=== PATIENT | female | born 1995 | race Caucasian/White ===

== ENCOUNTER 2021-11-09 19:13 | Inpatient (IN) | payer OTHER, MEDICAID, SELFPAY ==
[2021-11-09 19:14] VITALS: BP 156/107; PULSE 108; RESP 15; TEMP 36.5; O2SAT 100; BMI 37.0
--- NOTE | 2021-11-09 19:38 | EKG12_ITS ---
Test Reason : DYSRHYTHMIA Blood Pressure : / mmHG Vent. Rate : 096 BPM Atrial Rate : 096 BPM P-R Int : 156 ms QRS Dur : 092 ms QT Int : 374 ms P-R-T Axes : 062 039 045 degrees QTc Int : 472 ms Normal sinus rhythm Normal ECG Confirmed by TERESA MURDOCK, FIDEL ([id number]), film editor KANDI VELA ([id number]) on 11/11/2021 6:15:39 AM Referred By: KAYLYNN Confirmed By:FIDEL MOORE MD
--- NOTE | 2021-11-09 19:44 | EDS_ITS ---
HPI History of Present Illness Chief Complaint: Substance Abuse Narrative Narrative: Patient presents with polysubstance abuse, wanting detox. She states she has been an addict for 10 years. She mixed cocaine and methamphetamines today. 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 She states that she also has problems with alcohol, and drinks anywhere from 8-24 beers a day, last drink was earlier today. She called her cousin who brought her here to the emergency department because she wanted detox as she had spoken with a rehabilitation counselor. She denies any suicidal ideation. She states she does not use heroin or other substances. She has used benzodiazepines in the past but that is not my thing. [facility] Medical History (Updated 11/09/21 @ 21:27 by William Genao MD) Alcohol abuse Hypothyroidism Schizophrenia Substance abuse Home Medications levothyroxine 25 mcg tablet 25 mcg PO DAILY 11/09/21 [History Last Taken Unknown] Allergy/AdvReac Type Severity Reaction Status Date / Time No Known Allergies Allergy Verified 11/09/21 19:18 Social History Smoking Status: Current every day smoker tobacco type: cigarettes ROS ROS ED ROS Narrative Constitutional: No fever, no chills. HEENT: No sore throat. No neck pain. No loss of vision. No rhinorrhea. Cardiovascular: No chest pain. No palpitations. No pedal edema. Respiratory: No cough, no shortness of breath. Abdominal: No abdominal pain. No nausea. No vomiting. Genitourinary: No dysuria. No hematuria. Musculoskeletal: No myalgias. No arthralgias. Neurologic: No headaches. No dizziness. No lightheadedness. Skin: No rash. No change in color. Psychiatric: No depression. No anxiety. I am scared. EXAM Physical Exam Narrative Exam Narrative: Afebrile. Vital signs noted. HEENT: Normocephalic. Atraumatic. PERRL, EOMI. Neck soft and supple. No point tenderness or step off. Cardiovascular: Positive tachycardia, no murmurs, rubs, or gallops appreciated. Respiratory: No tachypnea. Lungs clear to auscultation bilaterally. Gastrointestinal: Abdomen soft, nontender, with normoactive bowel sounds. No rebound or guarding. Neurological: Awake. Alert. Nonfocal, nonlateralizing. Skin: No rash. Normal color. No pallor. Musculoskeletal: No pedal edema. Full range of motion extremities. Psychiatric: Denies suicidal ideation. No active hallucinations. Tearful on examination. Const Vital Signs: 11/09/21 19:14 11/09/21 21:14 Temperature 97.7 F L Temperature Source Temporal Pulse Rate 108 H Respiratory Rate 15 17 Blood Pressure 156/107 H Blood Pressure Mean 123 Pulse Ox 100 Oxygen Delivery Method Room Air Room Air MDM MDM MDM Narrative Medical decision making narrative: Medical screening labs were obtained. Serum is negative. Urine drug screen is positive for amphetamines, cocaine, and cannabinoids. Ethyl alcohol level is negative at less than 3.0. CBC is grossly normal. CMP shows hypokalemia of 3.0 which was replaced orally with 40 mill equivalents. At this point in time, I feel she is medically cleared for detox. Patient will be discussed with Dr. Kohler, the hospitalist for admission for detoxification. Patient is in stable condition. Lab Data Attestation: I reviewed the patient's lab results. Labs: Laboratory Results - last 24 hr 11/09/21 11/09/21 11/09/21 19:35 20:45 20:45 WBC 8.3 RBC 4.39 Hgb 14.9 Hct 41.9 MCV 95.4 MCH 33.9 H MCHC 35.6 RDW Std Deviation 44.9 H RDW Coeff of Sena 12.7 Plt Count 328 MPV 10.6 Immature Gran % (Auto) 0.100 Neut % (Auto) 56.7 Lymph % (Auto) 32.4 [place] % (Auto) 9.7 Eos % (Auto) 0.7 Baso % (Auto) 0.4 Absolute Neuts (auto) 4.7 Absolute Lymphs (auto) 2.68 Nucleated RBC % 0 Sodium Potassium Chloride Carbon Dioxide Anion Gap BUN Creatinine Estim Creat Clear Calc Est GFR (MDRD) Af Amer Est GFR (MDRD) Non-Af BUN/Creatinine Ratio Glucose Calcium Total Bilirubin AST ALT Alkaline Phosphatase Total Protein Albumin Globulin Albumin/Globulin Ratio Serum , Qual Urine Opiates Screen NEGATIVE Urine Methadone Screen NEGATIVE Ur Barbiturates Screen NEGATIVE Ur Phencyclidine Scrn NEGATIVE Ur Amphetamines Screen POSITIVE H MDMA (Ecstasy) Screen NEGATIVE U Benzodiazepines Scrn NEGATIVE Urine Cocaine Screen POSITIVE H U Cannabinoids Screen POSITIVE H Ur Drug Screen Comment Ethyl Alcohol < 3.0 11/09/21 11/09/21 20:45 20:45 WBC RBC Hgb Hct MCV MCH MCHC RDW Std Deviation RDW Coeff of Sen[place] Plt Count MPV Immature Gran % (Auto) Neut % (Auto) Lymph % (Auto) [place] % (Auto) Eos % (Auto) Baso % (Auto) Absolute Neuts (auto) Absolute Lymphs (auto) Nucleated RBC % Sodium 139 Potassium 3.0 L Chloride 105 Carbon Dioxide 25.0 Anion Gap 9 BUN 6 L Creatinine 0.69 Estim Creat Clear Calc 88.75 Est GFR (MDRD) Af Amer 131 Est GFR (MDRD) Non-Af 109 BUN/Creatinine Ratio 8.7 L Glucose 94 Calcium 9.2 Total Bilirubin 0.70 AST 13 L ALT 25 Alkaline Phosphatase 66 Total Protein 8.0 Albumin 4.4 Globulin 3.6 Albumin/Globulin Ratio 1.2 Serum , Qual NEGATIVE Urine Opiates Screen Urine Methadone Screen Ur Barbiturates Screen Ur Phencyclidine Scrn Ur Amphetamines Screen MDMA (Ecstasy) Screen U Benzodiazepines Scrn Urine Cocaine Screen U Cannabinoids Screen Ur Drug Screen Comment Ethyl Alcohol Discharge Plan Dx/Rx/DC Orders Clinical Impression: Polysubstance abuse, Desire for detoxification, Hypokalemia Disposition Disposition: Acute Care Hospital [facility]
[2021-11-09 20:25] LABS: Amphetamine Urine VISTA POSITIVE (<1000 ng/mL); Barbiturate Urine VISTA NEGATIVE (< 200 ng/mL); Benzodiazepine Urine VISTA NEGATIVE (< 200 ng/mL); Cocaine Urine VISTA POSITIVE (< 300 ng/mL); Ecstacy Urine VISTA NEGATIVE (< 500 ng/mL); Methadone Urine VISTA NEGATIVE (< 300 ng/mL); PCP Urine VISTA NEGATIVE (< 25 ng/mL); THC Urine VISTA POSITIVE (< 50 ng/mL); Vista UDS pH Range 8
[2021-11-09 21:00] LABS: Absolute Lymphocyte Count 2.68 X10^3/uL (0.83-4.51); Absolute Neutrophil Count 4.7 X10^3/uL (2.0-7.7); Basophil# 0.03 X10^3/uL; Basophil% 0.4 % (0-1); Eosinophil# 0.06 X10^3/uL; Eosinophils% 0.7 % (0-5); Hematocrit 41.9 % (37-47); Hemoglobin 14.9 g/dL (12.0-15.0); Lymphocyte # 2.68 X10^3/ul (0.83-4.51); Lymphocyte % 32.4 % (19-41); Mean Corp Hgb Conc 35.6 g/dL (32-36); Mean Corpuscular Hgb 33.9 pg (27.0-32.0); Mean Corpuscular Volume 95.4 fL (81-99); Mean Platelet Vol. 10.6 fl (6.2-12.0); Monocyte% 9.7 % (0-10); NRBC Flagged by Analyzer 0 % (0-5); Neutrophil # 4.68 X10^3/uL (2.7-7.7); Neutrophil % 56.7 % (47-70); Platelet Count 328 K/mm3 (150-450); RBC Distribution Width CV 12.7 % (11.6-14.6); RBC Distribution Width SD 44.9 fl (35.1-43.9); Red Blood Count 4.39 M/mm3 (4.2-5.4); White Blood Count 8.3 K/mm3 (4.4-11.0)
[2021-11-09 21:14] VITALS: RESP 17
[2021-11-09 21:17] LABS: Alcohol, Blood (Medical)-Serum < 3.0 mg/dL
[2021-11-09 21:20] LABS: ALB/GLOB Ratio 1.2 RATIO (0.9-2.4); AST(SGOT) 13 U/L (15-37); Alanine Aminotransfer ALT/SGPT 25 U/L (13-56); Albumin, Serum 4.4 g/dL (3.2-5.0); Alkaline Phosphatase 66 U/L (45-117); Anion Gap 9 (5-15); BUN 6 mg/dL (7-18); BUN/Creat Ratio 8.7 RATIO (10-20); Calcium,Total 9.2 mg/dL (8.5-10.1); Chloride 105 mmol/L (98-107); Creatinine, Serum 0.69 mg/dL (0.55-1.02); EST Glomerular Filtration Rate 109 mL/min (>60); Est Glom Filt Rate - Afr Amer 131 mL/min (>60); Estimated Creatinine Clearance 88.75 ml/min; Globulin 3.6 g/dL (2.2-4.2); Glucose 94 mg/dL (74-106); Sodium Level 139 mmol/L (136-145)
[2021-11-09 21:21] LABS: Internal QC Validated? YES +Cl - CLEAR BKGD; Pregnancy, Serum, hCG Quali. NEGATIVE Negative
[2021-11-09] MEDS: Potassium Chloride Oral Tablet 20 MEQ 40 MEQ PO ×2 (21:30→23:08)
[2021-11-09 21:46] VITALS: BP 150/100; PULSE 119; RESP 17; TEMP 36.4; O2SAT 98
--- NOTE | 2021-11-09 22:01 | HP.PCM.HOS_ITS ---
HPI - General General Date of Admission: 11/09/21 Date of Service: 11/09/21 Chief Complaint: Cocaine, Methamphetamine, EtOH abuse, requesting withdrawal treatment HPI Narrative The patient is a 26 y/o F w/ PMHx: Tobacco use, Anxiety and Depression/Bipolar Disorder/ADHD/Schizophrenia, Polysubstance abuse (Methamphetamine/Cocaine snorted frequently, last use 8-9 am on day of presentation, EtOH (18-24 beers daily, last usage 8-9 am) who presents to the [facility] ED on 11/09/21 with onset of acute withdrawal complaints including mild tremors, agitation, tactile disturbances in addition to irritability, poor concentration increased paranoia above her baseline and cocaine cravings secondary to concurrent stimulant abuse as well as alcohol abuse requesting substance detoxification. Work-up in the ED included T97.6, heart rate 119, BP 150/100, respiratory rate 17, 98% on room air, CBC with WC 8.3, hemoglobin 14.9, platelet 328 without marked shift, CMP with potassium 3.0 otherwise CMP unremarkable, serum negative, UDS with positive amphetamine, cocaine and cannabis, ethyl alcohol less than 3. In the ED from discussion with staff patient was initially extremely confrontational and irritable but did calm down and does state that she is extremely interested in getting help. She notes that her daughter stays with her during the meade therefore should not with her currently but she does not want a risk losing any partial custody. [facility] Medical History ADHD Alcohol abuse Anxiety and depression Bipolar disorder Hypothyroidism Schizophrenia Substance abuse Tobacco use Home Medications levothyroxine 25 mcg tablet 25 mcg PO DAILY 11/09/21 [History Last Taken Unknown] Allergy/AdvReac Type Severity Reaction Status Date / Time No Known Allergies Allergy Verified 11/09/21 19:18 Family History (Updated 11/09/21 @ 22:[address] Ivett Kohler MD) Mother Hypertension Father Heart disease CAD (coronary artery disease) Myocardial infarction Hypertension Surgical History (Updated 11/09/21 @ 22:[address] Ivett Kohler MD) History of nephrostomy Social History (Updated 11/09/21 @ 22:[address] Ivett Kohler MD) household members: other details: Staying with her mother. She has a daughter w/ divided custody with father. Smoking Status: Current every day smoker tobacco type: cigarettes Smoking packs per day: 1.5 Smoking cigarettes per day: 30.0 alcohol intake: current alcohol intake frequency: 3 or more drinks per day details: 18-24 beers daily. substance use type: marijuana, crack/cocaine and methamphetamine ROS ROS Narrative Admission Review of Systems: CONSTITUTIONAL: No weight loss, fever, chills, + weakness or fatigue. HEENT: + Rhinorrhea, congestion. Eyes: No visual loss, blurred vision, double vision or yellow sclerae. Ears, Nose, Throat: No hearing loss, sneezing or sore throat. SKIN: No rash or itching, lesions, wounds. CARDIOVASCULAR: No chest pain, chest pressure or chest discomfort, palpitations, edema, orthopnea, syncopal events. RESPIRATORY: No shortness of breath, cough or sputum, wheezing, hemoptysis. GASTROINTESTINAL: + anorexia, nausea without vomiting, no diarrhea, abdominal pain, melena, BRBPR. GENITOURINARY: No dysuria, frequency, urgency or retention. NEUROLOGICAL: + Agitation, tactile disturbances, mild tremors, No headache, dizziness, syncope, paralysis, ataxia, numbness or tingling in the extremities, focal weakness, change in bowel or bladder control, seizure. MUSCULOSKELETAL: + muscle, back pain, joint pain or stiffness. HEMATOLOGIC: No anemia, bleeding or bruising. LYMPHATICS: No enlarged nodes. No history of splenectomy. PSYCHIATRIC: + history of depression or anxiety/bipolar disorder/schizophrenia/ADHD. ENDOCRINOLOGIC: + reports of sweating, cold or heat intolerance. No polyuria or polydipsia. ALLERGIES: No history of asthma, hives, eczema or rhinitis. Vital Signs Vital Signs Vital Signs: 11/09/21 19:14 11/09/21 21:14 11/09/21 21:46 Temperature 97.7 F L 97.6 F L Temperature Source Temporal Temporal Pulse Rate 108 H 119 H Respiratory Rate 15 17 17 Blood Pressure 156/107 H 150/100 H Blood Pressure Mean 123 116 Pulse Ox 100 98 Oxygen Delivery Method Room Air Room Air Room Air Weight Weight: 190 lb Body Mass Index (BMI) 37.0 Physical Exam Narrative Physical Examination: General: Awake, alert, oriented to place, current plan of care and interventions, does appear oriented times greater than 3 however she does frequently ask as to whether or not she is hallucinating things, currently co operative but prior was agitated, seated upright in the ED bed, labile mood, frequently crying however columns with discussion. Skin: Normal color, normal turgor, no icterus, no cyanosis. HEENT: AT/NC, EOMI, PERRLA, dry MM, notable rhinorrhea evident, no carotid bruits or JVD noted. Lungs: Mildly diminished, greater bases, appropriate effort, no rales, ronchi or wheezing. Heart: Tachycardic with regular rhythm; no gallop, rub audible. Abdomen: Soft, generalized discomfort with palpation but no rebound or guarding, ND, hyperactive BS, no HSM. Extremities: No cyanosis, clubbing, or edema. Neurological: Patient awake, alert, oriented as noted, cognitive function suspect baseline secondary to withdrawal symptoms but does have underlying significant psychiatric history with schizophrenia included; pupils equally reactive to light and accommodation, cranial nerves grossly normal, moving all 4 extremities, no focal deficits, strength mildly to moderately global decreased secondary to acute presentation, evidence of mild tremors, significant agitation and some evidence also paranoia. Psychiatric: Affect appears agitated, paranoid, labile mood with crying intermittently, does have underlying significant psychiatric history with schizophrenia, anxiety and depression, bipolar disorder, ADHD. Results Lab / Micro Data Result Diagrams: 11/09/21 20:45 11/09/21 20:45 Labs: Laboratory Results - last 24 hr 11/09/21 19:35: Urine Opiates Screen NEGATIVE, Urine Methadone Screen NEGATIVE, Ur Barbiturates Screen NEGATIVE, Ur Phencyclidine Scrn NEGATIVE, Ur Amphetamines Screen POSITIVE H, MDMA (Ecstasy) Screen NEGATIVE, U Benzodiazepines Scrn NEGATIVE, Urine Cocaine Screen POSITIVE H, U Cannabinoids Screen POSITIVE H, Ur Drug Screen Comment 11/09/21 20:45: WBC 8.3, RBC 4.39, Hgb 14.9, Hct 41.9, MCV 95.4, MCH 33.9 H, MCHC 35.6, RDW Std Deviation 44.9 H, RDW Coeff of Sena 12.7, Plt Count 328, MPV 10.6, Immature Gran % (Auto) 0.100, Neut % (Auto) 56.7, Lymph % (Auto) 32.4, [place] % (Auto) 9.7, Eos % (Auto) 0.7, Baso % (Auto) 0.4, Absolute Neuts (auto) 4. 7, Absolute Lymphs (auto) 2.68, Nucleated RBC % 0 11/09/21 20:45: Ethyl Alcohol < 3.0 11/09/21 20:45: Serum , Qual NEGATIVE 11/09/21 20:45: Sodium 139, Potassium 3.0 L, Chloride 105, Carbon Dioxide 25.0, Anion Gap 9, BUN 6 L, Creatinine 0.69, Estim Creat Clear Calc 88.75, Est GFR (MDRD) Af Amer 131, Est GFR (MDRD) Non-Af 109, BUN/Creatinine Ratio 8.7 L, Glucose 94, Calcium 9.2, Total Bilirubin 0.70, AST 13 L, ALT 25, Alkaline Phosphatase 66, Total Protein 8.0, Albumin 4.4, Globulin 3.6, Albumin/Globulin Ratio 1.2 Assessment & Plan Assessment/Plan (1) Alcohol withdrawal: (2) Stimulant withdrawal: PLAN: Plan The patient is a 26 y/o F w/ PMHx: Tobacco use, Anxiety and Depression/Bipolar Disorder/ADHD/Schizophrenia, Polysubstance abuse (Methamphetamine/Cocaine snorted frequently, last use 8-9 am on day of presentation, EtOH (18-24 beers daily, last usage 8-9 am) who presents to the [facility] ED on 11/09/21 with onset of [place] withdrawal complaints including mild tremors, agitation, tactile disturbances in addition to irritability, poor concentration increased paranoia above her baseline and cocaine cravings secondary to concurrent stimulant abuse as well as alcohol abuse requesting substance detoxification. #1. Acute EtOH Withdrawal: Will admit to medical surgical floor, routine labs obtained in the ED upon presentation and notable for mild hypokalemia. Given interest in sobriety, will initiate and continue on protocol with taper course of Phenobarbital, scheduled gabapentin for seizure prophylaxis, as needed Catapres, Bentyl, Vistaril, IV fluids, IV antiemetics, Tylenol as needed for pain. Will consult Case management for assistance for transition to next level of rehabilitation care. Mag, phos pending. #2. Acute stimulant withdrawal: Patient with significant daily usage of cocaine, withdrawal symptoms very apparent, currently no drug FDA approved regimen for withdrawal however there are several regimens including Suboxone, methadone, modafinil and amantadine that have been used with varying degrees of success. We will continue to closely monitor, treat for alcohol withdrawal as noted above #1 and requesting as noted consultation with case management in 180 next transition of care with potential consideration of these options for withdrawal. #3. Hypokalemia: Admission K+ 3.0, magnesium level pending, supplementation given, repeat level in AM. #4. Anxiety and Depression/Bipolar Disorder/ADHD/Schizophrenia: From current review of medications she is not on any psychiatric regimen and given her underlying history this likely contributes heavily to her substance abuse, will benefit greatly from counseling and consideration medication, awaiting case management in 180 involvement. #5. Hypothyroidism: Continue home synthroid regimen. #6. Tobacco Abuse: Encouraged cessation, inpatient consultation per RT, NR if desired. #7. DVT prophylaxis: Low risk, encourage ambulation. Charges/Coding Visit Charges Inpatient E&M: 49379 Init Hosp L3
[2021-11-09 22:46] LABS: Magnesium 1.8 mg/dL (1.6-2.6); Phosphorus 2.3 mg/dL (2.5-4.9)
[2021-11-09 22:49] VITALS: BP 151/89; PULSE 112; RESP 14; TEMP 36.6; O2SAT 100
[2021-11-09 22:52] VITALS: BMI 29.5
[2021-11-09] MEDS: Phenobarbital 32.4 MG Tablet PO (23:08)
[2021-11-09] MEDS: Lactated Ringers 1,000 ML 125 ML IV (23:08)
[2021-11-09] MEDS: Dicyclomine 10 MG Capsule 20 MG PO (23:12)
[2021-11-09] MEDS: hydrOXYzine PAM 25 MG Capsule 50 MG PO (23:48)
[2021-11-10] MEDS: traZODone 100 MG Tablet PO ×2 (00:33→22:17)
[2021-11-10 02:55] VITALS: BP 123/66; PULSE 105; RESP 18; TEMP 36.8; O2SAT 100
[2021-11-10] MEDS: Phenobarbital 32.4 MG Tablet PO ×6 (02:58→22:17)
[2021-11-10] MEDS: Levothyroxine 25 MCG TABLET PO (06:49)
[2021-11-10 06:53] VITALS: BP 100/60; PULSE 94; RESP 20; TEMP 36.5; O2SAT 99
[2021-11-10] MEDS: hydrOXYzine PAM 25 MG Capsule 50 MG PO ×2 (08:40→22:17)
[2021-11-10] MEDS: Gabapentin 300 MG Capsule PO (08:40)
[2021-11-10] MEDS: Ibuprofen 600 MG Tablet PO ×2 (08:40→22:17)
[2021-11-10] MEDS: Thiamine Hydrochloride 100 MG Tablet PO (08:41)
[2021-11-10] MEDS: Folic Acid 1 MG Tablet PO (08:41)
--- NOTE | 2021-11-10 09:31 | PCM.PN.HOSP ---
Subjective Subjective Fairly symptomatic with withdrawal symptoms, she states this is her first time going through withdrawal. CIWA scores this morning of 6 Objective Data Objective Data Vital Signs: Vital Signs Temp Pulse Resp BP Pulse Ox O2 Del Method 97.7 F L 94 20 H 100/60 99 Room Air 11/10/21 06:53 11/10/21 06:53 11/10/21 06:53 11/10/21 06:53 11/10/21 06:53 11/10/21 06:53 Oxygen Delivery Method Room Air Weight: 151 lb 0.266 oz Body Mass Index (BMI) 29.5 Intake & Output: Intake and Output for Last 24 Hours 11/09/21 11/10/21 11/11/21 03:59 03:59 03:59 Intake Total 240 / 240 1461.25 / 1461.25 Balance 240 / 240 1461.25 / 1461.25 Lab / Micro Data Result Diagrams: 11/09/21 20:45 11/09/21 20:45 Labs: Laboratory Results - last 24 hr 11/09/21 19:35: Urine Opiates Screen NEGATIVE, Urine Methadone Screen NEGATIVE, Ur Barbiturates Screen NEGATIVE, Ur Phencyclidine Scrn NEGATIVE, Ur Amphetamines Screen POSITIVE H, MDMA (Ecstasy) Screen NEGATIVE, U Benzodiazepines Scrn NEGATIVE, Urine Cocaine Screen POSITIVE H, U Cannabinoids Screen POSITIVE H, Ur Drug Screen Comment 11/09/21 20:45: WBC 8.3, RBC 4.39, Hgb 14.9, Hct 41.9, MCV 95.4, MCH 33.9 H, MCHC 35.6, RDW Std Deviation 44.9 H, RDW Coeff of Sena 12.7, Plt Count 328, MPV 10.6, Immature Gran % (Auto) 0.100, Neut % (Auto) 56.7, Lymph % (Auto) 32.4, [place] % (Auto) 9.7, Eos % (Auto) 0.7, Baso % (Auto) 0.4, Absolute Neuts (auto) 4.7, Absolute Lymphs (auto) 2.68, Nucleated RBC % 0 11/09/21 20:45: Ethyl Alcohol < 3.0 11/09/21 20:45: Serum , Qual NEGATIVE 11/09/21 20:45: Sodium 139, Potassium 3.0 L, Chloride 105, Carbon Dioxide 25.0, Anion Gap 9, BUN 6 L, Creatinine 0.69, Estim Creat Clear Calc 88.75, Est GFR (MDRD) Af Amer 131, Est GFR (MDRD) Non-Af 109, BUN/Creatinine Ratio 8.7 L, Glucose 94, Calcium 9.2, Total Bilirubin 0.70, AST 13 L, ALT 25, Alkaline Phosphatase 66, Total Protein 8.0, Albumin 4.4, Globulin 3.6, Albumin/Globulin Ratio 1.2 11/09/21 20:45: Phosphorus 2.3 L, Magnesium 1.8 Physical Exam Narrative General: Alert, Oriented x3, Cooperative, some tremors and she seems to be restless in bed HEENT: Atraumatic, PERRLA, EOMI, Normocephalic Oral: Moist Mucosa Neck: Supple, No JVD Lungs: Clear to auscultation, Normal air movement, No rhonchi, No wheeze, No rales Cardiovascular: Regular rate, Regular Rhythm, Normal S1, Normal S2, No murmurs Abdomen: Soft, Non Tender, Non-Distended, No Hepato-splenomegaly Extremities: No edema, Capillary Refill Less than 3 Seconds Skin: No rashes, No breakdown Musculoskeletal: No Tenderness to Palpation of Joints or Extremities Neurological: Cranial nerves II-XII grossly intact, Motor Exam 5/5 strength throughout, Sensory exam intact to light touch and pain Psych/Mental Status: Flat affect, Appropriate, acknowledges significant withdrawal symptoms Assessment & Plan Assessment/Plan (1) Alcohol withdrawal: (2) Stimulant withdrawal: PLAN: Plan 1. Acute alcohol withdrawal with acute stimulant withdrawal/anxiety and depression/bipolar disorder/ADHD/schizophrenia/tobacco abuse ? Continue with the alcohol withdrawal protocol ? She continues to have significant withdrawal symptoms may benefit from Librium ? We will continue to monitor and make adjustments to her medications as necessary ? We will continue to have her follow-up with 180 for outpatient management ? Discussed cessation of tobacco products ? She likely needs intensive psychiatric evaluation for her schizophrenia, as well as possible bipolar disorder and to be started on medications therefore may benefit from inpatient treatment 2. Hypothyroidism ? Stable ? Continue with Synthroid DVT: Ambulation
[2021-11-10 10:23] VITALS: BP 110/50; PULSE 94; RESP 16; TEMP 36.6; O2SAT 98
[2021-11-10 14:36] VITALS: BP 97/69; PULSE 105; TEMP 36.5; O2SAT 99
--- NOTE | 2021-11-10 15:00 | ADDICTION ---
This writer editor met with PT to conduct ASAM, MSE, DUDIT AUDIT assessments and to plan for d/c. All assessments completed. PT declined d/c planning noting that this worker can come back tomorrow. This worker will return tomorrow to discuss d/c planning.
[2021-11-10 18:27] VITALS: BP 121/63; PULSE 101; RESP 16; TEMP 36.7; O2SAT 98
[2021-11-10 22:08] VITALS: BP 105/60; PULSE 102; RESP 18; TEMP 36.7; O2SAT 98
[2021-11-11] VITALS (7 sets, daily range): BP systolic 104–118; BP diastolic 53–70; PULSE 82–95; RESP 16–22; TEMP 36.6–36.8; O2SAT 95–100
[2021-11-11] MEDS: hydrOXYzine PAM 25 MG Capsule 50 MG PO ×4 (02:30→22:52)
[2021-11-11] MEDS: Phenobarbital 32.4 MG Tablet PO ×6 (02:30→22:52)
[2021-11-11] MEDS: Gabapentin 300 MG Capsule PO ×2 (06:12→14:49)
[2021-11-11] MEDS: Levothyroxine 25 MCG TABLET PO (06:12)
[2021-11-11 06:30] LABS: Anion Gap 4 (5-15); BUN 9 mg/dL (7-18); BUN/Creat Ratio 16.9 RATIO (10-20); Chloride 109 mmol/L (98-107); Creatinine, Serum 0.53 mg/dL (0.55-1.02); EST Glomerular Filtration Rate 148 mL/min (>60); Est Glom Filt Rate - Afr Amer 179 mL/min (>60); Estimated Creatinine Clearance 115.54 ml/min; Glucose 107 mg/dL (74-106); Sodium Level 138 mmol/L (136-145)
--- NOTE | 2021-11-11 08:36 | PN.HOSP_ITS ---
Subjective Subjective Withdrawal symptoms seem to be improved, no issues overnight. CIWA score of 2 this morning Objective Data Objective Data Vital Signs: Vital Signs Temp Pulse Resp BP Pulse Ox O2 Del Method 98.2 F 82 16 116/54 L 95 Room Air 11/11/21 06:05 11/11/21 06:05 11/11/21 06:05 11/11/21 06:05 11/11/21 06:05 11/11/21 06:05 Oxygen Delivery Method Room Air Weight: 151 lb 0.266 oz Body Mass Index (BMI) 29.5 Intake & Output: Intake and Output for Last 24 Hours 11/10/21 11/11/21 11/12/21 03:59 03:59 03:59 Intake Total 240 / 240 2811.25 / 2811.25 Balance 240 / 240 2811.25 / 2811.25 Lab / Micro Data Result Diagrams: 11/09/21 20:45 11/11/21 05:39 Labs: Laboratory Results - last 24 hr 11/11/21 05:39: Sodium 138, Potassium 4.0, Chloride 109 H, Carbon Dioxide 25.0, Anion Gap 4 L, BUN 9, Creatinine 0.53 L, Estim Creat Clear Calc 115.54, Est GFR (MDRD) Af Amer 179, Est GFR (MDRD) Non-Af 148, BUN/Creatinine Ratio 16.9, Glucose 107 H, Calcium 8.0 L Physical Exam Narrative General: Alert, Oriented x3, Cooperative, no acute distress HEENT: Atraumatic, PERRLA, EOMI, Normocephalic Oral: Moist Mucosa Neck: Supple, No JVD Lungs: Clear to auscultation, Normal air movement, No rhonchi, No wheeze, No rales Cardiovascular: Regular rate, Regular Rhythm, Normal S1, Normal S2, No murmurs Abdomen: Soft, Non Tender, Non-Distended, No Hepato-splenomegaly Extremities: No edema, Capillary Refill Less than 3 Seconds Skin: No rashes, No breakdown Musculoskeletal: No Tenderness to Palpation of Joints or Extremities Neurological: Cranial nerves II-XII grossly intact, Motor Exam 5/5 strength throughout, Sensory exam intact to light touch and pain Psych/Mental Status: Flat affect, Appropriate Assessment & Plan Assessment/Plan (1) Alcohol withdrawal: (2) Stimulant withdrawal: PLAN: Plan 1. Acute alcohol withdrawal with acute stimulant withdrawal/anxiety and depression/bipolar disorder/ADHD/schizophrenia/tobacco abuse ? Continue with the alcohol withdrawal protocol ? We will continue to monitor and make adjustments to her medications as ne cessary ? We will continue to have her follow-up with 180 for outpatient management ? Discussed cessation of tobacco products ? She likely needs intensive psychiatric evaluation for her schizophrenia, as well as possible bipolar disorder and to be started on medications therefore may benefit from inpatient treatment 2. Hypothyroidism ? Stable ? Continue with Synthroid DVT: Ambulation Charges/Coding Visit Charges Inpatient E&M: 04417 Subs Hosp L2
[2021-11-11] MEDS: Folic Acid 1 MG Tablet PO (09:37)
[2021-11-11] MEDS: Thiamine Hydrochloride 100 MG Tablet PO (09:37)
[2021-11-11] MEDS: LORazepam 1 MG Tablet PO (20:06)
[2021-11-11] MEDS: traZODone 100 MG Tablet PO (20:06)
[2021-11-12 02:00] VITALS: BP 98/54; PULSE 95; RESP 18; TEMP 36.6; O2SAT 99
[2021-11-12] MEDS: hydrOXYzine PAM 25 MG Capsule 50 MG PO ×2 (03:01→06:58)
[2021-11-12] MEDS: Phenobarbital 32.4 MG Tablet PO ×4 (03:01→18:30)
[2021-11-12] MEDS: Levothyroxine 25 MCG TABLET PO (06:58)
--- NOTE | 2021-11-12 07:07 | PCM.PN.HOSP ---
Subjective Subjective Doing well, no new issues. LUCAS this morning of a 10 Objective Data Objective Data Vital Signs: Vital Signs Temp Pulse Resp BP Pulse Ox O2 Del Method 97.9 F 95 18 98/54 L 99 Room Air 11/12/21 02:00 11/12/21 02:00 11/12/21 02:00 11/12/21 02:00 11/12/21 02:00 11/12/21 02:00 Oxygen Delivery Method Room Air Weight: 151 lb 0.266 oz Body Mass Index (BMI) 29.5 Intake & Output: Intake and Output for Last 24 Hours 11/11/21 11/12/21 11/13/21 03:59 03:59 03:59 Intake Total 2811.25 / 2811.25 700 / 700 300 / 300 Output Total 700 / 700 Balance 2811.25 / 2811.25 0 / 0 300 / 300 Lab / Micro Data Result Diagrams: 11/09/21 20:45 11/11/21 05:39 Physical Exam Narrative General: Alert, Oriented x3, Cooperative, no acute distress HEENT: Atraumatic, PERRLA, EOMI, Normocephalic Oral: Moist Mucosa Neck: Supple, No JVD Lungs: Clear to auscultation, Normal air movement, No rhonchi, No wheeze, No rales Cardiovascular: Regular rate, Regular Rhythm, Normal S1, Normal S2, No murmurs Abdomen: Soft, Non Tender, Non-Distended, No Hepato-splenomegaly Extremities: No edema, Capillary Refill Less than 3 Seconds Skin: No rashes, No breakdown Musculoskeletal: No Tenderness to Palpation of Joints or Extremities Neurological: Cranial nerves II-XII grossly intact, Motor Exam 5/5 strength throughout, Sensory exam intact to light touch and pain Psych/Mental Status: Flat affect, Appropriate, anxious Assessment & Plan Assessment/Plan (1) Alcohol withdrawal: (2) Stimulant withdrawal: PLAN: Plan 1. Acute alcohol withdrawal with acute stimulant withdrawal/anxiety and depression/bipolar disorder/ADHD/schizophrenia/tobacco abuse ? Continue with the alcohol withdrawal protocol ? We will continue to monitor and make adjustments to her medications as necessary ? We will continue to have her follow-up with 180 for outpatient management ? Discussed cessation of tobacco products ? She likely needs intensive psychiatric evaluation for her schizophrenia, as well as possible bipolar disorder and to be started on medications therefore we will plan for inpatient treatment tomorrow 2. Hypothyroidism ? Stable ? Continue with Synthroid DVT: Ambulation Charges/Coding Visit Charges Inpatient E&M: 42901 Subs Hosp L2
[2021-11-12 07:19] VITALS: O2SAT 97
[2021-11-12 07:40] VITALS: BP 98/38; PULSE 84; RESP 18; TEMP 36.8; O2SAT 97
[2021-11-12] MEDS: Thiamine Hydrochloride 100 MG Tablet PO (07:44)
[2021-11-12] MEDS: Folic Acid 1 MG Tablet PO (07:44)
[2021-11-12 13:32] VITALS: BP 108/43; PULSE 94; RESP 18; TEMP 36.8; O2SAT 99
[2021-11-12] MEDS: Gabapentin 300 MG Capsule PO (13:37)
[2021-11-12 19:55] VITALS: BP 127/68; PULSE 89; RESP 12; TEMP 36.8; O2SAT 97
[2021-11-13 00:17] VITALS: BP 110/68; PULSE 86; RESP 12; TEMP 36.8; O2SAT 97
[2021-11-13] MEDS: traZODone 100 MG Tablet PO (00:20)
[2021-11-13] MEDS: Phenobarbital 32.4 MG Tablet PO ×2 (00:20→06:14)
[2021-11-13] MEDS: hydrOXYzine PAM 25 MG Capsule 50 MG PO (00:20)
[2021-11-13 02:35] VITALS: BP 123/65; PULSE 87; RESP 12; TEMP 36.8; O2SAT 96
[2021-11-13] MEDS: Levothyroxine 25 MCG TABLET PO (06:14)
[2021-11-13] MEDS: Gabapentin 300 MG Capsule PO (06:15)
[2021-11-13 08:28] VITALS: BP 114/56; PULSE 83; RESP 18; TEMP 37; O2SAT 98
[2021-11-13] MEDS: Folic Acid 1 MG Tablet PO (08:37)
[2021-11-13] MEDS: Thiamine Hydrochloride 100 MG Tablet PO (08:37)
--- NOTE | 2021-11-13 08:42 | DCINST_ITS ---
Discharge Instructions Diet Discharge Diet: No restrictions Activity Discharge Activity: Return to Normal Activity Dressing / Incision Call your doctor if you observe: Fever of 101 or Higher, Shortness of breath, Dizziness, Fainting spells, Swelling in the ankles and Chest pain Follow Up Care Test Results: Test results from this visit will be discussed in further detail at your follow- up appointment, if applicable. Discharge Plan Admission Admit Date/Time: 11/09/21 22:08 Attending Provider: Jeet Bell Primary Care Provider: Care Physician,No Primary Consulting Providers: Ivett Kohler Discharge Orders/Prescriptions Prescriptions: Continued levothyroxine 25 mcg tablet 25 mcg PO DAILY Label Comments: TAKE 1 TABLET BY MOUTH EVERY DAY Referrals / Follow Up: Care Physician,No Primary [Primary Care Provider] - Disposition Disposition (needs filled in before D/C Order can be placed): Home, Self Care
--- NOTE | 2021-11-13 11:01 | PCM.DC.SUM ---
Providers Date of Admission: 11/09/21 Primary Care Physician: No Primary Care Phys Reason For Visit: ACUTE ETOH WITHDRAWL, ACUTE STIMULANT WITHDRAWL Diagnosis Discharge Diagnosis (1) Alcohol withdrawal: Status: Acute Code(s): F10.939 - Alcohol use, unspecified with withdrawal, unspecified (2) Stimulant withdrawal: Status: Acute Code(s): F15.93 - Other stimulant use, unspecified with withdrawal Plan 1. Acute alcohol withdrawal with acute stimulant withdrawal/anxiety and depression/bipolar disorder/ADHD/schizophrenia/tobacco abuse ? Continue with the alcohol withdrawal protocol ? We will continue to monitor and make adjustments to her medications as necessary ? We will continue to have her follow-up with 180 for outpatient management ? Discussed cessation of tobacco products ? She likely needs intensive psychiatric evaluation for her schizophrenia, as well as possible bipolar disorder and to be started on medications therefore we will plan for inpatient treatment tomorrow 2. Hypothyroidism ? Stable ? Continue with Synthroid DVT: Ambulation Medications at Discharge Home Medications levothyroxine 25 mcg tablet 25 mcg PO DAILY thyroid 11/09/21 Hospital Course Operations None Procedures None Summary of Care Provided Minutes Spent on Discharge: 36 Hospital Course: Per HPI: The patient is a 26 y/o F w/ PMHx: Tobacco use, Anxiety and Depression/Bipolar Disorder/ADHD/Schizophrenia, Polysubstance abuse (Methamphetamine/Cocaine snorted frequently, last use 8-9 am on day of presentation, EtOH (18-24 beers daily, last usage 8-9 am) who presents to the [facility] ED on 11/09/21 with onset of acute withdrawal complaints including mild tremors, agitation, tactile disturbances in addition to irritability, poor concentration increased paranoia above her baseline and cocaine cravings secondary to concurrent stimulant abuse as well as alcohol abuse requesting substance detoxification.? Work-up in the ED included T97.6, heart rate 119, BP 150/100, respiratory rate 17, 98% on room air, CBC with WC 8.3, hemoglobin 14.9, platelet 328 without marked shift, CMP with potassium 3.0 otherwise CMP unremarkable, serum negative, UDS with positive amphetamine, cocaine and cannabis, ethyl alcohol less than 3.? In the ED from discussion with staff patient was initially extremely confrontational and irritable but did calm down and does state that she is extremely interested in getting help.? She notes that her daughter stays with her during the meade therefore should not with her currently but she does not want a risk losing any partial custody. Hospital Course: 1.? Acute alcohol withdrawal with acute stimulant withdrawal/anxiety and depression/bipolar disorder/ADHD/schizophrenia/tobacco abuse ? Continue with the alcohol withdrawal protocol ? We will continue to monitor and make adjustments to her medications as necessary ? We will continue to have her follow-up with 180 for outpatient management ? Discussed cessation of tobacco products ? She likely needs intensive psychiatric evaluation for her schizophrenia, as well as possible bipolar disorder and to be started on medications therefore she will be discharged to inpatient rehab today. 2.? Hypothyroidism ? Stable ? Continue with Synthroid Physical Exam Narrative General: Alert, Oriented x3, Cooperative, no acute distress HEENT: Atraumatic, PERRLA, EOMI, Normocephalic Oral: Moist Mucosa Neck: Supple, No JVD Lungs: Clear to auscultation, Normal air movement, No rhonchi, No wheeze, No rales Cardiovascular: Regular rate, Regular Rhythm, Normal S1, Normal S2, No murmurs Abdomen: Soft, Non Tender, Non-Distended, No Hepato-splenomegaly Extremities: No edema, Capillary Refill Less than 3 Seconds Skin: No rashes, No breakdown Musculoskeletal: No Tenderness to Palpation of Joints or Extremities Neurological: Cranial nerves II-XII grossly intact, Motor Exam 5/5 strength throughout, Sensory exam intact to light touch and pain Psych/Mental Status: Flat affect, Appropriate, anxious Weight / BMI Weight Weight: 151 lb 0.266 oz Body Mass Index (BMI) 29.5 ABG / Lab / Microbiology Data Result Diagrams: 11/09/21 20:45 11/11/21 05:39 D/C Instructions Discharge Diet: No restrictions Call your doctor if you observe: Fever of 101 or Higher, Shortness of breath, Dizziness, Fainting spells, Swelling in the ankles and Chest pain Meaningful Use Info Meaningful Use Diagnoses (Choose all that apply): None applicable Discharge Plan Admission Admit Date/Time: 11/09/21 22:08 Attending Provider: Jeet Bell Primary Care Provider: [place] Physician,No Primary Consulting Providers: Ivett Kohler Discharge Orders/Prescriptions Prescriptions: Continued levothyroxine 25 mcg tablet 25 mcg PO DAILY Label Comments: TAKE 1 TABLET BY MOUTH EVERY DAY Referrals / Follow Up: Care Physician,No Primary [Primary Care Provider] - Disposition Disposition (needs filled in before D/C Order can be placed): Home, Self Care Charges/Coding Visit Charges Inpatient E&M: 34699 Disch Hosp
== END 2021-11-13 09:14 | disposition home or self-care (01) | DRG 774 ==
LOC: ED 21:27 → MS3 22:16
PROVIDERS: Admitting Provider Family Medicine; Emergency Provider Emergency Medicine; Visit Provider Family Medicine
DX: F10.239 Alcohol dependence with withdrawal, unspecified (principal); F14.90 Cocaine use, unspecified, uncomplicated; E03.9 Hypothyroidism, unspecified; F20.9 Schizophrenia, unspecified; F31.9 Bipolar disorder, unspecified; F15.93 Other stimulant use, unspecified with withdrawal; F17.210 Nicotine dependence, cigarettes, uncomplicated; E87.6 Hypokalemia; F12.90 Cannabis use, unspecified, uncomplicated; F41.9 Anxiety disorder, unspecified; F90.9 Attention-deficit hyperactivity disorder, unspecified type; Y90.9 Presence of alcohol in blood, level not specified
CPT/HCPCS: 36415; 80048; 80053; 80307; 82077; 83735; 84100; 84703; 85025; 93005; 97802; 99283; J7120